=== PATIENT | male | born 2000 | race Caucasian/White ===

== ENCOUNTER 2018-11-03 13:23 | Emergency (ER) | payer OTHER ==
[~2018-11-03] VITALS: Ht 175.3 cm; Wt 80.9 kg
[2018-11-03 13:28] VITALS: TEMP 98.5
[2018-11-03] MEDS ORDERED: NORCO 325 MG-51 TAB PO (14:02)
[2018-11-03 14:45] VITALS: BP 108/56; PULSE 91
== END 2018-11-03 14:45 | disposition home or self-care (01) ==
LOC: COL.ER 13:23
DX: S83.412A Sprain of medial collateral ligament of left knee, initial encounter (principal); X50.1XXA Overexertion from prolonged static or awkward postures, initial encounter; Y93.66 Activity, soccer
CPT/HCPCS: J1885

== ENCOUNTER → 2019-01-24 | Outpatient (CLI) | payer OTHER ==
[~2019-01-24] MED LIST: NORCO 325 MG-51 TAB PO
== END ==
LOC: COL.CARD 09:36
DX: R56.9 Unspecified convulsions (principal); G43.909 Migraine, unspecified, not intractable, without status migrainosus